=== PATIENT | male | born 1945 | race Caucasian/White ===

== ENCOUNTER 2020-08-17 09:10 | Day surgery (SDC) | payer MEDICARE, BC ==
[~2020-08-17] VITALS: Ht 175.3 cm; Wt 73.1 kg
[2020-08-17] VITALS (17 sets, daily range): BP systolic 127–174; BP diastolic 66–90
[2020-08-17] MEDS ORDERED: normal saline 1000ml 1,000 ML IV SCH (09:35)
[2020-08-17] MEDS ORDERED: Lupron (10:04)
[2020-08-17] MEDS ORDERED: ENZA80TA PO (10:04)
[2020-08-17] MEDS ORDERED: DENO60DI SUBCUT (10:04)
[2020-08-17] MEDS ORDERED: FLO0.4C PO (10:04)
[2020-08-17] MEDS ORDERED: CALC-1215 PO (10:04)
[2020-08-17 10:30] LABS: BASOPHILS % (AUTO) 0.5 % (0-1); EOSINOPHILS # (AUTO) 0.1 X10'3 (0-0.9); HEMOGLOBIN 12.7 g/dl (14.0-17.9); LYMPHOCYTES # (AUTO) 1.4 X10'3 (1.1-4.8); LYMPHOCYTES % (AUTO) 28.7 % (21-51); MEAN CORPUSCULAR HEMOGLOBIN 31.4 PG (27.0-31.0); MEAN CORPUSCULAR HGB CONC 33.4 g/dL (33.0-36.5); MEAN PLATELET VOLUME 7.1 FL (7.4-10.4); MONOCYTES # (AUTO) 0.5 X10'3 (0-0.9); MONOCYTES % (AUTO) 9.4 % (2-12); NEUTROPHILS # (AUTO) 2.9 X10'3 (1.8-7.7); NEUTROPHILS % (AUTO) 59.4 % (42-75); PLATELET COUNT 225 X10'3 (140-440); RED BLOOD COUNT 4.04 X10'6 (4.70-6.10); RED CELL DISTRIBUTION WIDTH 13.4 % (11.5-14.5); WHITE BLOOD COUNT 4.9 X10'3 (4.5-11.0)
[2020-08-17] MEDS ORDERED: fentaNYL/PF 50MCG/1 ML 2ML syringe ONE ×2 (10:42→11:10)
[2020-08-17] MEDS ORDERED: midazolam 1 mg/ML 2ml injection ONE (10:42)
[2020-08-17] MEDS ORDERED: gelatin sponge, absorbable (Gelfoam 12-7MM) sponge TP ONE (10:44)
[2020-08-17] MEDS ORDERED: HYDROcodone/acetaminophen 5mg/325mg tablet PO PRN (11:40)
== END 2020-08-17 14:25 | disposition home or self-care (01) ==
LOC: SSTAY O 09:10
PROVIDERS: ATTEND Radiology Vascular & Interventional Radiology
DX: R91.1 Solitary pulmonary nodule (principal); Z87.891 Personal history of nicotine dependence; Z79.899 Other long term (current) drug therapy; Z85.46 Personal history of malignant neoplasm of prostate
CPT/HCPCS: 32408; 36415; 71045; 85025; 99152; 99153; J2250; J3010; 77012